=== PATIENT | male | born 1960 ===

== ENCOUNTER → 2023-08-02 06:27 | Day surgery (SDC) | payer BC, SELFPAY | LOC: GI 06:27 | PROVIDERS: ATTENDING PHYSICIAN Internal Medicine Gastroenterology | DX: Z12.11 Encounter for screening for malignant neoplasm of colon (principal); K57.30 Diverticulosis of large intestine without perforation or abscess without bleeding; K64.8 Other hemorrhoids; K20.90 Esophagitis, unspecified without bleeding; K29.80 Duodenitis without bleeding; K22.89 Other specified disease of esophagus; K44.9 Diaphragmatic hernia without obstruction or gangrene; K31.89 Other diseases of stomach and duodenum; R12 Heartburn; Z80.0 Family history of malignant neoplasm of digestive organs | CPT/HCPCS: 43239; G0105; 88305; 88342 ==

== ENCOUNTER → 2023-10-06 10:41 | Outpatient (REF) | payer BC, SELFPAY | LOC: RAD 10:41 | PROVIDERS: ATTENDING PHYSICIAN Family Medicine | DX: E78.5 Hyperlipidemia, unspecified (principal) | CPT/HCPCS: 75571 ==

== ENCOUNTER → 2024-02-14 12:21 | Outpatient (REF) | payer MEDICARE, BC, SELFPAY | LOC: RAD 12:21 | PROVIDERS: ATTENDING PHYSICIAN Family Medicine | DX: M54.50 Low back pain, unspecified (principal) | CPT/HCPCS: 72110 ==

== ENCOUNTER → 2024-03-03 06:25 | Outpatient (REF) | payer MEDICARE, BC, SELFPAY | LOC: MRI 3T 06:25 | PROVIDERS: ATTENDING PHYSICIAN Family Medicine | DX: M54.50 Low back pain, unspecified (principal) | CPT/HCPCS: 72148 ==

== ENCOUNTER → 2024-04-23 14:43 | Outpatient (REF) | payer MEDICARE, BC, SELFPAY | LOC: RAD 14:43 | PROVIDERS: ATTENDING PHYSICIAN Surgery | DX: N20.0 Calculus of kidney (principal) | CPT/HCPCS: 74018 ==

== ENCOUNTER → 2024-05-08 06:39 | Outpatient (REF) | payer MEDICARE, BC, SELFPAY | LOC: RAD 06:39 | PROVIDERS: ATTENDING PHYSICIAN Internal Medicine Gastroenterology; FAMILY PHYSICIAN Family Medicine | DX: K82.4 Cholesterolosis of gallbladder (principal) | CPT/HCPCS: 76700 ==